=== PATIENT | female | born 1980 | race Native Hawaiian/Other Pacific Islander ===

== ENCOUNTER 2016-11-03 18:02 | Emergency (ER) | payer BC ==
[~2016-11-03] VITALS: Ht 165.1 cm; Wt 88.9 kg
[~2016-11-03 18:02] MED LIST: CIPRO500 MG PO; METR250T19 PO; PANT40TA PO
[2016-11-03 18:03] VITALS: TEMP 97.9
[2016-11-03 18:21] LABS: PLATELET COUNT 183 K/uL (152-353)
[2016-11-03 18:37] LABS: POTASSIUM 3.4 mmol/L (3.6-5.2); SODIUM 138 mmol/L (136-145)
[2016-11-03 20:33] VITALS: BP 136/82
== END 2016-11-03 20:33 | disposition home or self-care (01) ==
LOC: ED 18:02
DX: K31.3 Pylorospasm, not elsewhere classified (principal); R10.84 Generalized abdominal pain; R11.2 Nausea with vomiting, unspecified
CPT/HCPCS: 36415; 80053; 82150; 83690; 85027; 86318; 96361; 96374; 99284; J1885

== ENCOUNTER 2017-06-12 21:18 | Outpatient (CLI) | payer OTHER | END 2017-06-12 21:26 | disposition short-term general hospital (02) | LOC: AMB 21:18 | DX: R07.89 Other chest pain (principal) | CPT/HCPCS: A0425; A0427 ==

== ENCOUNTER 2017-06-12 21:30 | Emergency (ER) | payer OTHER ==
[~2017-06-12] VITALS: Ht 167.6 cm; Wt 75.8 kg
[2017-06-12 22:04] LABS: PLATELET COUNT 263 K/uL (152-353)
[2017-06-12 22:14] LABS: PARTIAL THROMBOPLASTIN TIME 22.1 SECONDS (24.5-33.6); POTASSIUM 2.8 mmol/L (3.6-5.2); SODIUM 140 mmol/L (136-145)
[2017-06-12 23:02] VITALS: BP 99/63; TEMP 98.2
== END 2017-06-12 23:05 | disposition home or self-care (01) ==
LOC: ED 21:30
DX: F12.10 Cannabis abuse, uncomplicated (principal); R55 Syncope and collapse
CPT/HCPCS: 80053; 80307; 81000; 82550; 82553; 84484; 85027; 85610; 85730; 93005; 99283